=== PATIENT | female | born 1990 | race Caucasian/White ===

== ENCOUNTER 2022-12-26 02:20 | Inpatient (IN) ==
[2022-12-26] MEDS ORDERED: PENICILLIN G POTASSIUM 6 MU in DEXTROSE 5% 250 ML IV STA (02:58)
[2022-12-26] MEDS ORDERED: LIDOCAINE 1% LOCAL 20 ML VIAL INFIL PRN (02:58)
[2022-12-26] MEDS ORDERED: OXYTOCIN 30 UNITS/500 ML BAG IV PRN ×3 (02:58→16:32)
--- NOTE | 2022-12-26 03:06 | History & Physical Report ---
Date of Service December 26, 2022 Assessment & Plan (1) Supervision of normal intrauterine in primigravida: Plan: IUP at term in labor GBS (+)- will start PCNG epidural analgesia when requested anticipate vaginal History of Present Illness Primary Care Provider: Melanie Lezama MD Patient is a 32 yo female EDC 12/26/22 who presents at 40 weeks with regular contractions and bloody show for last several hours. (-)SPROM GBS (+). complicated by obesity. testing has been reassuring Allergies Allergy/AdvReac Type Severity Reaction Status Date / Time aspirin Allergy Severe anaphylaxis Verified 12/24/22 15:16 Home Medications Medication Instructions Recorded Confirmed Type prenat.vits,red,wrh-hzbc-vwpyj 1 tab PO DAILY 11/04/22 12/26/22 History Patient History Medical History H/O varicella No significant past medical history Surgical History S/P LASIK surgery S/P LASIK surgery of both eyes S/P medial meniscectomy of left knee Status post medial meniscectomy of knee Family History Father Skin cancer Dyslipidemia Diabetes Mother Dyslipidemia Heart murmur Brother No problems noted. Sister No problems noted. Aunt Breast cancer Other Hypertension Denies family history of Colon cancer Ovarian cancer Prostate cancer Myocardial infarction Colorectal cancer Social History (Updated 05/20/22 @ 17:16 by Karen Garcia) Smoking Status: Never smoker Second Hand Exposure: No; Do You Dip or Chew Tobacco: No; Hx Alcohol Use: Yes Alcohol type: wine Alcohol Intake Frequency: Monthly or Less Hx Substance Use: No Preferred Language: Norwegian Communication Ability: Effective Visual Impairment: No Limitations Hearing Ability: Normal Force Adjustment Supervisor Required: No Beliefs That Will Affect Care: None marital status: marital status details: Mp [phone] Current Living Situation: Spouse Current Living Situation Comment: lives with spouse, 2 dogs. 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 Other Information That Helps Us Care for You: No Feels Safe at Home: Yes Safety Concerns: Feels Safe At This Time Childhood Exposure to Second-Hand Smoke: Yes Diet: regular Dental Care, Regularly: Yes Physical Activity Frequency: 3-4 Times per Week Seatbelt Use: always Sunscreen Use: Yes Assistive Devices: None Review of Systems All systems reviewed & are unremarkable except as noted in HPI & below Physical Exam Constitutional: WD/WN, vitals as above Psychiatric: A+Ox3, euthymic affect Genitourinary: OB Exam Abdomen: + vertex, + estimated weight (7-8 pounds) and + regular contractions Manual OB Exam: + cervical dilation 3 cm, + cervical effacement 50% and + station -2 OB Exam Monitor Tracing: + external FHT monitor used, + external uterine monitor used, + category I and + normal FHT variability Results & Data Vital Signs (Past 12 Hours) Vital Signs Temp Pulse Resp BP 12/26/22 02:37 98.2 F 18 12/26/22 02:33 93 H 137/89 Coding Level of Care Code None Diagnoses Supervision of normal intrauterine in primigravida Z34.00
[2022-12-26] MEDS: LACTATED RINGER'S 1,000 ML IV PRN ×2 (03:18→06:09)
[2022-12-26] MEDS ORDERED: fentaNYL citrate PF 100 MCG/2 ML VIAL ONE (03:25)
[2022-12-26] MEDS ORDERED: ePHEDrine sulfate 50 MG/ML AMP ONE (03:25)
[2022-12-26] MEDS ORDERED: SODIUM CHLORIDE 0.9% PF INJ 10 ML VIAL ONE (03:25)
[2022-12-26 03:26] LABS: Hematocrit (blood only) 33.6 % (37.0-47.0); Hemoglobin 11.1 g/dl (12.0-16.0); Mean Corpuscular Hemoglobin 26.7 pg (25.0-34.0); Mean Corpuscular Volume 80.8 fL (80.0-100.0); Mean Platelet Volume 11.3 fL (9.4-12.4); Platelet Count 233 K/uL (130-400); RDW Coefficient of Variation 16.5 % (11.5-14.5); RDW Standard Deviation 48.2 fL (36.4-46.3); Red Blood Count 4.16 M/uL (4.20-5.40); White Blood Count 11.42 K/ul (4.8-10.8)
[2022-12-26] MEDS ORDERED: BUPIVACAINE 0.25% PF 30 ML VIAL ONE (03:26)
[2022-12-26] MEDS ORDERED: fentaNYL 2MCG/ML ROPIVACAINE 1.25MG/ML 100 ML BAG EPI ONE (03:26)
[2022-12-26] MEDS ORDERED: LIDOCAINE 2%/EPINEPHRINE 1:200,000 20 ML PF ONE (03:26)
[2022-12-26] MEDS ORDERED: LIDOCAINE 2% MPF LOCAL 5 ML VIAL EPI PRN (04:52)
[2022-12-26] MEDS ORDERED: NALOXONE HCL 1 MG in SODIUM CHLORIDE 0.9% 1000ML 1,000 ML IV PRN (04:52)
[2022-12-26] MEDS ORDERED: BUPIVACAINE 0.25% PF 30 ML VIAL EPI PRN (04:52)
[2022-12-26] MEDS ORDERED: ePHEDrine sulfate 50 MG/ML AMP IV PRN (04:52)
[2022-12-26] MEDS ORDERED: fentaNYL citrate PF 100 MCG/2 ML VIAL EPI STA (04:52)
[2022-12-26] MEDS ORDERED: LIDOCAINE 2%/EPINEPHRINE 1:200,000 20 ML PF EPI STA (04:52)
[2022-12-26] MEDS ORDERED: NALBUPHINE HCL INJ 10 MG/ML AMP IV PRN (04:52)
[2022-12-26] MEDS ORDERED: SODIUM CHLORIDE 0.9% PF INJ 10 ML VIAL EPI STA (04:52)
[2022-12-26] MEDS ORDERED: fentaNYL citrate PF 100 MCG/2 ML VIAL EPI PRN (04:52)
[2022-12-26] MEDS ORDERED: SODIUM CHLORIDE 0.9% PF INJ 10 ML VIAL EPI PRN (04:52)
[2022-12-26] MEDS ORDERED: BUPIVACAINE 0.25% PF 30 ML VIAL EPI STA (04:52)
[2022-12-26] MEDS ORDERED: NALOXONE HCL 0.4 MG/1 ML VIAL/CARP IV PRN (04:52)
[2022-12-26] MEDS ORDERED: diphenhydrAMINE 50 MG/ML VIAL IV PRN (04:52)
[2022-12-26] MEDS ORDERED: ROPIVACAINE 0.5% PF 5 MG/ML 20 ML VIAL EPI PRN (04:52)
[2022-12-26] MEDS ORDERED: fentaNYL 2MCG/ML ROPIVACAINE 1.25MG/ML 100 ML BAG EPI PRN (04:52)
--- NOTE | 2022-12-26 04:55 | Anesthesiology Consultation ---
Date of Service December 26, 2022 Assessment & Plan Chart Review Chart Review: Acceptable Risk for Surgery Consults Requested none ASA ASA2 Proposed Anesthesia Anesthesia Type: Labor Epidural Risk / Benefits Reviewed With: PT / POA / Parent / Guardian, Accepts Plan and Informed Consent Obtained History Height/Weight Height: 5 ft 5 in Weight: 113.398 kg Allergies Allergy/AdvReac Type Severity Reaction Status Date / Time aspirin Allergy Severe anaphylaxis Verified 12/24/22 15:16 Medications Home Medications Medication Instructions Recorded Confirmed Last Taken prenat.vits,red,ckl-ojmx-xhksm 1 tab PO DAILY 11/04/22 12/26/22 11/04/22 05:00 Active Medications Generic Name Dose Route Start Last Admin Trade Name Freq PRN Reason Stop Dose Admin Lactated Ringer's 1,000 mls @ 125 mls/hr 12/26/22 02:58 12/26/22 04:08 Lr IV 12/28/22 02:57 0 mls/hr .Q8H PRN Infusion L&D Protocol Protocol Past Medical History Medical History H/O varicella No significant past medical history Exercise / Class Metabolic Activity II 4-5 Yardwork/Stairs/Walk up hill Past Family History Family History Father Skin cancer Dyslipidemia Diabetes Mother Dyslipidemia Heart murmur Brother No problems noted. Sister No problems noted. Aunt Breast cancer Other Hypertension Denies family history of Colon cancer Ovarian cancer Prostate cancer Myocardial infarction Colorectal cancer Past Surgical History Surgical History S/P LASIK surgery S/P LASIK surgery of both eyes S/P medial meniscectomy of left knee Status post medial meniscectomy of knee Past Anesthesia History No Hx of Anesthesia Complications History of PONV No Hx of PONV Social History Smoking Status: Never smoker Do You Dip or Chew Tobacco: No Hx Alcohol Use: Yes Alcohol type: wine Hx Substance Use: No Physical Exam Vital Signs Last Vital Signs Temp 36.8 C 12/26/22 02:37 Pulse 91 H 12/26/22 04:52 Resp 18 12/26/22 02:37 BP 133/67 12/26/22 04:52 Pulse Ox 100 06/17/23 04:50 Constitutional no acute distress ENMT Thyromental Distance: > or= 3.5 Finger Breadths Mallampati Class: II Neck normal visual inspection Respiratory normal respiratory effort; no respiratory distress Auscultation: lungs clear to auscultation bilaterally Cardiovascular Rate/Rhythm: regular rate and regular rhythm Heart Sounds: no murmur Psychiatric Orientation: alert and oriented x 3 Testing Laboratory Results 12/26/22 03:08 Blood Type O Positive 12/26/22 03:08 Antibody Screen NEGATIVE 12/26/22 03:08
--- NOTE | 2022-12-26 04:56 | Anesthesia Procedure Note ---
Anesthesia Procedure Note Neuraxial Placement Note Date of procedure: 12/26/22 Consent: Risk / Benefits Reviewed With: PT / POA / Parent / Guardian, Accepts Plan, Informed Consent Obtained and All Questions Answered Monitors attached: Blood Pressure and Pulse Oximetry Time out completed: Yes Prehydrate: Lactated ringers Premedication: None Position: Sitting Surgical Prep: Hand hygeine: Soap and water Equipment/Supplies: Cap, Mask, Sterile gloves, Sterile drapes and Sterile procedures used Skin prep: Betadine Site: Midline Local medication: 1% Lidocaine (ml) Neuraxial placement technique: Epidural Needle: 17g X 3.5 inch Tuohy Ultrasound Guidance: Ultrasound used: No Anesthetic used: Other (0.125% bupi) Parasthesias: No CSF: No Blood: No Attempts: 1 Post-Procedure: Pt hemodynamically stable, Pt tolerates well and No complication
[2022-12-26] MEDS: PENICILLIN G POTASSIUM 3 MU in DEXTROSE 5% 100 ML IV PRN ×2 (08:54→12:48)
[2022-12-26] MEDS ORDERED: ONDANSETRON INJ 2 MG/ML 2 ML VIAL IV PRN (12:25)
[2022-12-26] MEDS ORDERED: NURSING L&D Epidural Breakthrough Pain Update ONE (12:59)
--- NOTE | 2022-12-26 16:13 | Delivery Summary ---
Vaginal Delivery Summary Date of Service December 26, 2022 Vaginal Delivery Summary Spontaneous vaginal delivery the patient was admitted by Dr. Giron in active labor requested epidural antibiotics were started for group B strep positive and she received adequate coverage she pretty rested fully dilated should be noticed with artificial rupture membranes prior she pushed for approximately 1 hour delivering baby in occiput anterior baby's head was born mouth and nares suction gentle traction no excessive force live vigorous female cord clamped and cut cord blood obtained placenta removed with traction IV Pitocin started there was a second-degree tear repaired with 3-0 Vicryl and periurethral tears periurethral repair was placed by first placing a temporary catheter in her bladder and then a [id number] suture to ensure no closure of the urethra just provided excellent hemostasis sponge and instrument counts were correct estimated blood loss was 300 mL
[2022-12-26] MEDS ORDERED: DIPHTHERIA/TETANUS/PERTUSSIS Vaccine (Tdap, Age 7+yrs) 0.5mL SYR/VL IM ONE (16:32)
[2022-12-26] MEDS ORDERED: oxyCODONE/ACETAMINOPHEN 5mg/325mg TAB PO PRN (16:32)
[2022-12-26] MEDS ORDERED: bisacodyL 10 MG SUPP PR PRN (16:32)
[2022-12-26] MEDS ORDERED: BENZOCAINE 20% AER SPR 82.5 GM CAN EXT PRN (16:32)
[2022-12-26] MEDS ORDERED: ACETAMINOPHEN 325 MG TAB PO PRN (16:32)
[2022-12-26] MEDS ORDERED: HYDROCORTISONE ACETATE 25 MG SUPP PR PRN (16:32)
--- NOTE | 2022-12-26 18:11 | Anesthesia Procedure Note ---
Date of Service December 26, 2022 Anesthesia Post Epidural Note Vital Signs Vital Signs: Temp Pulse Resp BP Pulse Ox 37.1 C 105 H 16 128/66 99 12/26/22 16:07 12/26/22 18:09 12/26/22 17:41 12/26/22 18:09 12/26/22 16:05 Pain Intensity Abdomen: Pain Intensity: 0 Notes Mental Status: alert / awake / arousable Nausea / Vomiting: adequately controlled Pain: adequately controlled Airway Patency, RR, SpO2: stable & adequate BP & HR: stable & adequate Hydration State: stable & adequate Neuraxial Anesthesia: was administered and sensory block is resolving Anesthetic Complications: no major complications apparent Epidural: Removed without complications and With tip intact
[2022-12-26] MEDS: DOCUSATE SODIUM 100 MG CAP PO SCH (21:16)
[2022-12-27] MEDS: IBUPROFEN 600 MG TAB PO PRN ×3 (01:42→17:14)
[2022-12-27 06:17] LABS: Hematocrit (blood only) 27.9 % (37.0-47.0); Hemoglobin 9.3 g/dl (12.0-16.0); Mean Corpuscular Hemoglobin 26.8 pg (25.0-34.0); Mean Corpuscular Hgb Conc 33.3 g/dL (32.0-36.0); Mean Corpuscular Volume 80.4 fL (80.0-100.0); Mean Platelet Volume 11.2 fL (9.4-12.4); Platelet Count 195 K/uL (130-400); RDW Coefficient of Variation 16.7 % (11.5-14.5); Red Blood Count 3.47 M/uL (4.20-5.40); White Blood Count 13.85 K/ul (4.8-10.8)
--- NOTE | 2022-12-27 07:27 | Obstetrical Progress Note ---
Date of Service December 27, 2022 Assessment & Plan (1) Obesity affecting : PPD 1 cont current care Subjective Ambulation: ambulating normally Voiding: no voiding problems Passing Gas:: Yes Diet Tolerance:: regular diet Lochia:: Small Feeding Type:: breast feeding Results & Data Vital Signs (Past 12 Hours) Vital Signs Temp Pulse Resp BP Pulse Ox O2 Del Method 12/27/22 03:38 98.1 F 77 18 125/78 99 Room Air 12/26/22 23:40 98.8 F 84 18 131/78 100 Room Air 12/26/22 19:30 99.0 F 96 H 18 130/78 98 Room Air
[2022-12-27] MEDS: DOCUSATE SODIUM 100 MG CAP PO SCH ×2 (08:14→20:50)
[2022-12-27] MEDS: PRENATAL VITAMIN 1 TAB PO SCH (08:14)
[2022-12-27] MEDS ORDERED: bisacodyL 5 MG TABEC PO SCH (20:00)
--- NOTE | 2022-12-28 06:50 | Obstetrical Progress Note ---
Date of Service December 28, 2022 Assessment & Plan (1) care following vaginal delivery: (2) Group beta Strep positive: Plan - Overall, feeling well and eating well today - Infant feeding going well without concern - Urinating and passing gas appropriately - Ambulating well in room - Pain controlled w/ Ibuprofen - Hgb 9.3 on 12/27 - Vitals stable and wnl - Routine PP care progressing well - Anticipate discharge @ 24-48 hours PP - Recommending f/u outpatient in 6 weeks Admission and Anticipated Discharge Date Admission Date: December 26, 2022 Supervising Physician Co-Signing Physician Notes Resident Physician Supervision Note: I was present with Dr. Fletcher during the history and exam. I discussed the case with the resident and agree with the findings and plan as documented in the note. Any exceptions or clarifications are listed here: [None] Documented By: Kenroy Broderick MD, FACOG Subjective Patient is a 32F who is PPD #2 following delivery at 40 0/7. She reports feeling well overall this morning. - Ambulation - well throughout room - Voiding/Menard - independent voids, no dysuria or pressure - Gas/Stool - passing gas, no bowel movement - Diet - regular, no nausea or emesis - Lochia - diminishing, light amount - Feeding Type - breast feeding - Pain Level - 3/10 (cramping with BF), controlled with Ibuprofen Review of Systems - Denies fever, chills, sweats - Denies shortness of breath, difficulty breathing, chest pain, palpitations, chest pressure. - Denies breast pain. - Denies dysuria. - Denies headache or changes in vision. Physical Exam Physical Exam: General: Alert, oriented. No acute distress. Cardiac: RRR, normal S1/S2, no murmurs/rubs/gallops. Respiratory: Non-labored, CTAB, no wheezes/rales/rhonchi. Symmetric chest rise. Abdomen: Soft, nontender, nondistended. Bowel sounds present. Uterus: Uterine fundus firm, palpable 2 cm below umbilicus. Lower Extremities: No lower extremity edema or swelling. No deep calf pain. Camryn's negative bilaterally. Results & Data Vital Signs (Past 12 Hours) Vital Signs Temp Pulse Resp BP Pulse Ox O2 Del Method 12/28/22 03:50 36.8 C 80 18 124/76 99 Room Air 12/27/22 23:45 37.1 C 77 18 115/71 99 Room Air 12/27/22 20:00 37 C 93 H 16 124/76 98 Room Air Resident Activity Tracking Resident Involvement: Resident Care Provided Care Provided: OB Delivery
[2022-12-28] MEDS: DOCUSATE SODIUM 100 MG CAP PO SCH (08:08)
[2022-12-28] MEDS: PRENATAL VITAMIN 1 TAB PO SCH (08:09)
[2022-12-28] MEDS: IBUPROFEN 600 MG TAB PO PRN (09:41)
== END 2022-12-28 10:55 | disposition home or self-care (01) | DRG 807 ==
LOC: OPB 02:20 → 4S1 02:23 → 4E2 19:03